=== PATIENT | male | born 1990 | race Caucasian/White ===

== ENCOUNTER 2016-09-10 11:03 | Emergency (ER) | payer SELFPAY ==
[~2016-09-10] VITALS: Ht 188 cm; Wt 127.0 kg
[2016-09-10] MEDS ORDERED: ONDANSETRON 4MG ODT PO ONE (11:30)
[2016-09-10] MEDS ORDERED: HYDROCODONE/ACETAMINOPHEN 5/325MG TABLET PO ONE (11:30)
[2016-09-10 11:54] VITALS: BP 134/73
== END 2016-09-10 13:30 | disposition home or self-care (01) ==
LOC: ER 11:12
DX: S90.229A Contusion of unspecified lesser toe(s) with damage to nail, initial encounter (principal); S90.32XA Contusion of left foot, initial encounter; F17.200 Nicotine dependence, unspecified, uncomplicated; X58.XXXA Exposure to other specified factors, initial encounter; Y93.89 Activity, other specified; Y99.8 Other external cause status; Y92.89 Other specified places as the place of occurrence of the external cause; Z98.890 Other specified postprocedural states
CPT/HCPCS: 73590; 73610; 73630; 99284; Q0162; Z7610